=== PATIENT | male | born 1995 | race Caucasian/White ===

== ENCOUNTER 2017-02-17 15:47 | Emergency (ER) | payer MEDICAID, OTHER ==
[~2017-02-17] VITALS: Ht 170.2 cm; Wt 122.4 kg
--- NOTE | 2017-02-17 16:01 | NUR ---
PT IS IN ROOM #1B. DR JIMENEZ EVALUATED THE PT.
[2017-02-17] MEDS ORDERED: IBUPROFEN 600 MG TABLET PO ONE (16:30)
[2017-02-17] MEDS ORDERED: IBUPROFEN 600 MG TABLET ONE (16:44)
--- NOTE | 2017-02-17 18:19 | NUR ---
PT WAS D/C TO HOME/. D/C TINSTRUCTIONS GIVEN TO THE PT.
[2017-02-17 18:21] VITALS: BP 127/77
== END 2017-02-17 18:23 | disposition home or self-care (01) ==
LOC: ER 15:47
DX: M94.0 Chondrocostal junction syndrome [Tietze] (principal)
CPT/HCPCS: 71010; 93005; A4663

== ENCOUNTER 2017-12-17 17:43 | Emergency (ER) | payer OTHER ==
[~2017-12-17] VITALS: Ht 170.2 cm; Wt 95.3 kg
[2017-12-17] MEDS ORDERED: IBUPROFEN 600 MG TABLET ONE (17:59)
[2017-12-17] MEDS ORDERED: IBUPROFEN 600 MG TABLET PO ONE (18:00)
--- NOTE | 2017-12-17 18:00 | NUR ---
Xray at the bedside.
[2017-12-17 18:20] VITALS: BP 123/78
--- NOTE | 2017-12-17 18:22 | NUR ---
Patient discharged to home in stable conditon. Written and verbal after care instructions given. Patient verbalizes understanding of instructions.
== END 2017-12-17 18:21 | disposition home or self-care (01) ==
LOC: ER 17:47
DX: S93.402A Sprain of unspecified ligament of left ankle, initial encounter (principal); X58.XXXA Exposure to other specified factors, initial encounter; Y93.89 Activity, other specified; Y92.89 Other specified places as the place of occurrence of the external cause; Y99.8 Other external cause status
CPT/HCPCS: 73610; A4663

== ENCOUNTER 2021-01-02 11:55 | Emergency (ER) | payer OTHER ==
[~2021-01-02] VITALS: Ht 170.2 cm; Wt 98.4 kg
[2021-01-02] MEDS ORDERED: COLC0.6T67 PO (12:24)
--- NOTE | 2021-01-02 12:41 | NUR ---
Gave pt RX and d/c instructions, pt verbalized understanding.
== END 2021-01-02 12:43 | disposition home or self-care (01) ==
LOC: ER 11:56
DX: M10.9 Gout, unspecified (principal)
CPT/HCPCS: A4663

== ENCOUNTER 2021-01-06 11:47 | Emergency (ER) | payer OTHER ==
[~2021-01-06] VITALS: Ht 170.2 cm; Wt 98.4 kg
[~2021-01-06 11:47] MED LIST: COLC0.6T67 PO
--- NOTE | 2021-01-06 12:31 | NUR ---
Patient discharged to home in stable condition. Written and verbal after care instructions given. Patient verbalizes understanding of instructions. Stressed follow up or return to ER for worsening s/s.
== END 2021-01-06 12:33 | disposition home or self-care (01) ==
LOC: ER 11:47
DX: L03.011 Cellulitis of right finger (principal); M10.9 Gout, unspecified; Z79.899 Other long term (current) drug therapy
CPT/HCPCS: 10060; 99283; J3490; A4663

== ENCOUNTER 2021-02-02 12:22 | Emergency (ER) | payer OTHER ==
[~2021-02-02] VITALS: Ht 170.2 cm; Wt 98.4 kg
--- NOTE | 2021-02-02 13:29 | NUR ---
Patient discharged to home in stable condition. Written and verbal after care instructions given. Patient verbalizes understanding of instructions. Stressed follow up or return to ER for worsening s/s.pt walks in steady gait.
== END 2021-02-02 13:30 | disposition home or self-care (01) ==
LOC: ER 12:22
DX: S93.402A Sprain of unspecified ligament of left ankle, initial encounter (principal); W18.40XA Slipping, tripping and stumbling without falling, unspecified, initial encounter; Y92.89 Other specified places as the place of occurrence of the external cause; M10.9 Gout, unspecified; Z79.899 Other long term (current) drug therapy
CPT/HCPCS: 73610; A4663

== ENCOUNTER 2021-02-15 08:51 | Emergency (ER) | payer OTHER ==
[~2021-02-15] VITALS: Ht 170.2 cm; Wt 97.1 kg
--- NOTE | 2021-02-15 08:56 | NUR ---
[email or web address], medical screening exam in progress
--- NOTE | 2021-02-15 09:36 | NUR ---
Patient discharged to home in stable condition using our hospital wheelchair. Written and verbal after care instructions given to patient with copy of x-ray result & "excuse note for school until 02/18/2021" per Dr Olivares's order. Patient verbalized understanding & compliance of instructions. Stressed follow up his primary doctor and orthopedic doctor or return to ER for worsening s/s.
== END 2021-02-15 09:36 | disposition home or self-care (01) ==
LOC: ER 08:51
DX: S93.402A Sprain of unspecified ligament of left ankle, initial encounter (principal); W18.40XA Slipping, tripping and stumbling without falling, unspecified, initial encounter; Y92.89 Other specified places as the place of occurrence of the external cause
CPT/HCPCS: 73610; A4663

== ENCOUNTER 2021-05-09 09:22 | Emergency (ER) | payer OTHER ==
[~2021-05-09] VITALS: Ht 170.2 cm; Wt 97.5 kg
[2021-05-09] MEDS ORDERED: IBUPROFEN 600 MG TABLET PO ONE (09:30)
[2021-05-09] MEDS ORDERED: IBUPROFEN 600 MG TABLET ONE (09:32)
[2021-05-09] MEDS ORDERED: IBUP-1955 PO (09:46)
== END 2021-05-09 10:23 | disposition home or self-care (01) ==
LOC: ER 09:22
DX: M25.572 Pain in left ankle and joints of left foot (principal); R03.0 Elevated blood-pressure reading, without diagnosis of hypertension; M10.9 Gout, unspecified; X50.1XXA Overexertion from prolonged static or awkward postures, initial encounter; Y93.01 Activity, walking, marching and hiking; Y92.89 Other specified places as the place of occurrence of the external cause
CPT/HCPCS: 73610; A4663

== ENCOUNTER 2022-02-13 18:59 | Emergency (ER) | payer OTHER ==
[~2022-02-13] VITALS: Ht 170.2 cm; Wt 101.2 kg
[~2022-02-13 18:59] MED LIST changes: +IBUP-1955 PO
--- NOTE | 2022-02-13 22:00 | NUR ---
pt was placed in room 4a.
--- NOTE | 2022-02-13 22:10 | NUR ---
Dr. Hdz at bedside for MSE.
[2022-02-13] MEDS ORDERED: SULF15DR6 OP (22:29)
[2022-02-13 22:33] VITALS: BP 120/70
== END 2022-02-13 22:34 | disposition home or self-care (01) ==
LOC: ER 19:00
DX: H00.011 Hordeolum externum right upper eyelid (principal)
CPT/HCPCS: A4663

== ENCOUNTER 2025-07-13 17:00 | Emergency (ER) | payer OTHER ==
[~2025-07-13] VITALS: Ht 167.6 cm; Wt 94.3 kg
[~2025-07-13 17:00] MED LIST changes: -IBUP-1955 PO; +IBUP-2760 PO; +SULF15DR6 OP
[2025-07-13 17:14] VITALS: BP 114/77
[2025-07-13] MEDS ORDERED: PRED20TA PO (18:14)
[2025-07-13] MEDS ORDERED: COLC0.6T67 PO (18:14)
[2025-07-13 18:20] VITALS: BP 112/78; TEMP 98; O2SAT 99
== END 2025-07-13 18:21 | disposition home or self-care (01) ==
LOC: ER 17:00
DX: M10.072 Idiopathic gout, left ankle and foot (principal); Z79.1 Long term (current) use of non-steroidal anti-inflammatories (NSAID); Z79.52 Long term (current) use of systemic steroids; Z88.7 Allergy status to serum and vaccine
CPT/HCPCS: A4606